=== PATIENT | female | born 1980 | race Caucasian/White ===

== ENCOUNTER → 2024-03-22 14:05 | Outpatient (REF) | payer BC, SELFPAY ==
--- NOTE | 2024-03-22 15:56 | CARDSERVDEF ---
Echocardiogram with Definity completed after protocol screening completed. Allergies verified.
Patent IV site: _Right antecubital 22 g PC____
IV site flushed with 0.9% NaCl pre and post administration.
Diluted bolus method utilized to enhance visualization of ventricular cross.
Total volume given: ___5_ mL
Patient tolerated all procedures well without complications.
Heplock D/C ed at 1557, site clear, no redness, no edema. Pressure held, no bleeding, 2x2 applied and taped. Pt offers no complaints.
== END ==
LOC: RCS 14:05
PROVIDERS: ATTENDING PHYSICIAN Family Medicine
DX: R94.31 Abnormal electrocardiogram [ECG] [EKG] (principal); Z82.49 Family history of ischemic heart disease and other diseases of the circulatory system
CPT/HCPCS: 93017; 93320; 93325; 93350; Q9957

== ENCOUNTER 2025-02-21 10:59 | Emergency (ER) | payer BC, SELFPAY ==
[2025-02-21 11:04] VITALS: BP 151/83
[2025-02-21 11:25] LABS: % Basophils 0.5 % (0-2); % Eosinophils 1.1 % (0-6); % Immature Granulocytes 0.5 % (0-0.5); % Monocytes 5.9 % (1.7-9.3); Absolute Eosinophils 0.1 10^3/uL (0-0.7); Absolute Lymphocytes 2.4 10^3/uL (1.2-3.4); Absolute Monocytes 0.5 10^3/uL (0.1-0.6); Hematocrit 39.9 % (37.0-47.0); Hemoglobin 13.4 g/dL (12.0-16.0); Mean Corp Hgb Conc. 33.6 g/dL (33.0-37.0); Mean Corpuscular Hgb 30.7 pg (27.0-31.0); Mean Corpuscular Volume 91.3 fL (81.0-99.0); Mean Platelet Volume 11.7 fL (7.4-10.4); Nucleated Red Blood Cells % 0 %; Platelet Count 250 10^3/uL (130-400); Red Blood Cell Count 4.37 10^6/uL (4.20-5.40); Red Cell Dist. Width 12.4 % (11.5-14.5); White Blood Cell Count 8.1 10^3/uL (4.8-10.8)
[2025-02-21 11:36] LABS: HCG, Serum Qualitative Screen Negative
[2025-02-21 11:41] LABS: ALT (SGPT) 24 U/L (0-35); AST (SGOT) 24 U/L (14-36); Albumin 4.2 g/dl (3.5-5.0); Alkaline Phosphatase 51 U/L (38-126); Blood Urea Nitrogen 6 mg/dl (7-17); Calcium 9.2 mg/dl (8.4-10.2); Carbon Dioxide 26 mmol/L (22-30); Chloride 106 mmol/L (98-107); Glucose 119 mg/dl (70-99); Lipase 83 U/L (23-300); Potassium 4.5 mmol/L (3.5-5.1); Sodium 140 mmol/L (135-145); Total Bilirubin 0.7 mg/dl (0.2-1.3); Total Protein 7.3 g/dl (6.3-8.2); eGFR > 60.00
--- NOTE | 2025-02-21 12:59 | ED.GENMED ---
History of Present Illness
General
Chief Complaint: Rectal Bleeding
Source: patient
Exam Limitations: none
Time Seen by Provider: 02/21/25 12:26
History of Present Illness
History of Present Illness:
44-year-old female otherwise healthy presents with lower abdominal discomfort and change in bowel habits. She states she felt blocked and constipated last several days but finally had a very large bowel movement. She describes a sagging sensation
in her pelvis or something mechanically not functioning properly to have a bowel movement. Since then she has had some red-colored blood in her stool and now her stools pencil thin. She denies weight loss or gain. No vomiting but does note a
fever. Her temperature was 101 at home. She also notes some frequency with urination. No other complaints at this time
Phy Exam
Physical Exam
Physical Exam:
General: Well-appearing female no acute respiratory distress
HEENT: Normocephalic atraumatic
Heart: Regular rate and rhythm no murmurs
Lungs: Clear no wheeze
Abdomen is soft mildly tender to the lower abdomen no guarding or rebound
Extremities: No cyanosis
Course
Orders/Labs/Results
Orders:
Orders
02/21/25 11:11
Test Result ONCE
02/21/25 11:15
Complete Blood Count/With Diff Urgent
Comprehensive Metabolic Panel Urgent
HCG, Serum Qualitative Screen Urgent
Comment: Notify provider if positive test present
Lipase Urgent
02/21/25 12:57
CT Abd/pelvis W Iv Cont Urgent
Comment:
Reason For Exam: lower abdominal pain
02/21/25 14:06
Urinalysis Reflex To Culture Urgent
Date Specimen was Collected: 02/21/25
Time Specimen was Collected: 13:58
Urine Microscopic Reflex Cult Urgent
Urine Culture Urgent
GAEL Source: U
Specimen Description:
Date Specimen was Collected: 02/21/25
Time Specimen was Collected: 13:58
02/21/25 15:43
Add On - Microbiology Urgent
Tests Added?: urine gonorrhea/chlamydia
Abnormal Lab Results
02/21/25 02/21/25
11:15 14:06
MPV 11.7 H fL
(7.4-10.4)
BUN 6 L mg/dl
(7-17)
Glucose 119 H mg/dl
(70-99)
Leukocyte Esterase Rfl 1+ A
(Negative)
Urine Bacteria (Reflex) Few A
(Negative)
02/21/25 11:15
02/21/25 11:15
Vital Signs
Initial and Last Documented VS:
Initial Vital Signs
Temp Resp BP Pulse Ox
98.2 F 18 151/83 100
02/21/25 11:04 02/21/25 11:04 02/21/25 11:04 02/21/25 11:04
Last Documented Vital Signs
Temp Pulse Resp BP Pulse Ox
98.2 F 65 18 113/72 98
02/21/25 11:04 02/21/25 13:59 02/21/25 11:04 02/21/25 14:02 02/21/25 14:30
MDM/Problems Addressed
Differential Diagnosis Includes:
Patient describes change in bowel habits constipation lower abdominal pain with fever. Consider constipation versus diverticulitis versus hemorrhoid CT pending.
*Critical Care Note
Total Time (30-74mins, 75-104mins- exclusive of procedures): Not Applicable
Update Note
Update Note:
Labs within normal limits urinalysis without infection. CT demonstrates possible hydrosalpinx of the right adnexa. Patient further questioning. She denies any vaginal discharge. She is monogamous in a homosexual relationship. She was referred
recently to a tosser. She wishes to follow-up with gynecology for further evaluation. Did offer speculum exam here or ultrasound however she does have an appointment or will have an appointment in the near future with her tosser.
Urine gonorrhea and chlamydia test were ordered. Otherwise no intervention necessary. Stable for discharge
ED Attending Note
-
Portions of this chart may have been created with voice recognition software.� Occasional wrong word or��sound alike� substitutions may have occurred due to the inherent limitations of voice recognition software.
Discharge Plan
Departure
Patient Disposition: Home (Routine Discharge)
Date of Disposition: 02/21/25
Time of Disposition: 16:03
Patient with high blood pressure during this ER visit?: No
Discharge Problem:
Abdominal pain
Instructions: Abdominal Pain
Referrals:
Aleja Mccarty MD [Family Provider] -
Activity Restrictions/Additional Instructions:
Please return here for any worsening symptoms. Follow-up with gynecology as discussed.
Interventions
Interventions:
*Risk Screen - Suicide Last Done: 02/21/25 11:09
*General Assessment Last Done: 02/21/25 11:09
*Neglect/Abuse Screening Last Done: 02/21/25 11:09
*ED- Fall Risk Assessment Last Done: 02/21/25 13:59
*ED COVID-19 Vaccine History Last Done: 02/21/25 13:59
DM-Sxasgz-Fhjxftijyr Assessment Last Done: 02/21/25 13:59
ED- Cardiac Assessment Last Done: 02/21/25 13:59
ED- Pulmonary Assessment Last Done: 02/21/25 13:59
Discharge Date and Time
Print Language: [id number]
[2025-02-21 13:59] VITALS: BMI 28.8
[2025-02-21 14:02] VITALS: BP 113/72
[2025-02-21 14:17] LABS: Urine Albumin Negative (Neg - Trace); Urine Bilirubin Negative (Negative); Urine Character Clear (Clear); Urine Glucose Negative (Negative); Urine Ketone Negative (Negative); Urine Leukocyte 1+ (Negative); Urine Nitrite Negative (Negative); Urine Occult Blood Negative (Negative); Urine Urobilinogen Negative (Neg - 1+); Urine pH 6.5 (5.0-9.0)
[2025-02-21 14:18] LABS: Urine Color Straw
[2025-02-21 14:31] LABS: Urine Bacteria Few (Negative); Urine Red Blood Cell 0-2 /HPF (0-2); Urine Squamous Cell 0-2 /LPF (Few); Urine White Cell 0-2 /HPF (0-5)
[2025-02-21 15:17] VITALS: BP 111/71
== END 2025-02-21 17:01 | disposition home or self-care (01) ==
LOC: EMR 10:59
PROVIDERS: Physician Assistant; Student in an Organized Health Care Education/Training Program; EMERGENCY PHYSICIAN Emergency Medicine; FAMILY PHYSICIAN Family Medicine
DX: R10.30 Lower abdominal pain, unspecified (principal); K92.1 Melena; R50.9 Fever, unspecified; R35.0 Frequency of micturition
CPT/HCPCS: 99284; 74177; 80053; 81003; 81015; 83690; 84703; 85025; 87086; 87491; 87591; Q9967

== ENCOUNTER → 2025-03-11 09:59 | Outpatient (REF) | payer BC, SELFPAY | LOC: HWRAD 09:59 | PROVIDERS: ATTENDING PHYSICIAN Nurse Practitioner Adult Health; FAMILY PHYSICIAN Family Medicine | DX: R93.89 Abnormal findings on diagnostic imaging of other specified body structures (principal) | CPT/HCPCS: 76830; 76856 ==